=== PATIENT | female | born 1955 | race Caucasian/White ===

== ENCOUNTER 2020-05-02 15:28 | Inpatient (IN) | payer OTHER ==
[~2020-05-02] VITALS: Ht 167.6 cm; Wt 102.3 kg
[2020-05-02] MEDS ORDERED: DEXA6TAB6 PO (16:50)
[2020-05-02] MEDS ORDERED: dexamethasone inj 6 MG in normal saline 100ml IV soln 100 ML IV ONE (17:30)
[2020-05-02 18:20] LABS: BASOPHILS # (AUTO) 0.1 X10'3 (0-0.2); BASOPHILS % (AUTO) 0.6 % (0-1); EOSINOPHILS # (AUTO) 0.2 X10'3 (0-0.9); EOSINOPHILS % (AUTO) 1.2 % (0-6); HEMATOCRIT 41.3 % (35.0-45.0); HEMOGLOBIN 14.4 g/dl (12.0-16.0); LYMPHOCYTES # (AUTO) 2.9 X10'3 (1.1-4.8); LYMPHOCYTES % (AUTO) 22.1 % (21-51); MEAN CORPUSCULAR HEMOGLOBIN 31.2 PG (27.0-31.0); MEAN CORPUSCULAR HGB CONC 34.8 g/dL (33.0-36.5); MEAN CORPUSCULAR VOLUME 89.8 FL (78-98); MEAN PLATELET VOLUME 8.8 FL (7.4-10.4); MONOCYTES # (AUTO) 1.2 X10'3 (0-0.9); MONOCYTES % (AUTO) 9.5 % (2-12); NEUTROPHILS # (AUTO) 8.7 X10'3 (1.8-7.7); NEUTROPHILS % (AUTO) 66.6 % (42-75); PLATELET COUNT 306 X10'3 (140-440); RED CELL DISTRIBUTION WIDTH 13.2 % (11.5-14.5); WHITE BLOOD COUNT 13.1 X10'3 (4.5-11.0)
[2020-05-02] MEDS ORDERED: iohexol 350MG/ML 100ml bottle IV ONE (18:29)
[2020-05-02 18:35] LABS: D-DIMER 0.68 MG/L FEU (0-0.50)
[2020-05-02 18:51] LABS: ALANINE AMINOTRANSFERASE 117 U/L (12-78); ALBUMIN 3.5 G/DL (3.4-5.0); ALBUMIN/GLOBULIN RATIO 0.7 (1.1-1.5); ALKALINE PHOSPHATASE 82 IU/L (46-116); ANION GAP 12 (8-16); ASPARTATE AMINO TRANSFERASE 85 U/L (10-37); BILIRUBIN,TOTAL 0.5 MG/DL (0.1-1.0); BLOOD UREA NITROGEN 16 MG/DL (7-18); BUN/CREATININE RATIO 15.2 (6.6-38.0); CALCIUM 9.8 MG/DL (8.5-10.1); CHLORIDE 102 MMOL/L (99-107); CREATININE 1.05 MG/DL (0.40-0.90); GLUCOSE 143 MG/DL (70-104); SODIUM 138 MMOL/L (135-145); TOTAL CARBON DIOXIDE 24.1 MMOL/L (24-32); TOTAL PROTEIN 8.6 G/DL (6.4-8.2); eGFR 53 ML/MIN
[2020-05-02 18:56] LABS: POTASSIUM 2.4 MMOL/L (3.5-5.1)
[2020-05-02] MEDS ORDERED: potassium Cl 10 mEq/100mL bag IV ONE (19:00)
[2020-05-02] MEDS ORDERED: potassium 10mEq/100ml NS w/LIDOcaine (10mg/bag) IV ONE (19:00)
[2020-05-02] MEDS ORDERED: magnesium 2GM in 50ml NS 50 ML IV ONE (19:00)
[2020-05-02] MEDS ORDERED: potassium Cl 20 mEq SR tablet PO ONE (19:00)
[2020-05-02] MEDS ORDERED: magnesium oxide 400mg tablet PO ONE (19:00)
[2020-05-02] MEDS ORDERED: azithromycin/NS 500mg/250ml 250 ML IV ONE (19:25)
[2020-05-02 19:33] LABS: MAGNESIUM 2.5 MG/DL (1.5-2.4)
[2020-05-02] MEDS ORDERED: acetaminophen 325mg tablet PO PRN (20:10)
[2020-05-02] MEDS ORDERED: ipratropium/albuterol 3ml nebule NEB PRN ×2 (20:10)
[2020-05-02] MEDS ORDERED: potassium CL 10mEq/100ml bag 100 ML IV PRN ×2 (20:10)
[2020-05-02] MEDS ORDERED: magnesium 2GM in 50ml NS 50 ML IV PRN (20:10)
[2020-05-02] MEDS ORDERED: magnesium Cl slow-release 64mg tablet PO PRN (20:10)
[2020-05-02] MEDS ORDERED: ondansetron/PF 4mg/2ml inj IV PRN (20:10)
[2020-05-02] MEDS ORDERED: magnesium 4gm in 100ml NS 100 ML IV PRN (20:10)
[2020-05-02] MEDS ORDERED: CHOL20002 PO (21:43)
[2020-05-02] MEDS ORDERED: TOP100T PO (21:44)
[2020-05-02] MEDS ORDERED: PROP80CA58 PO (21:46)
[2020-05-02] MEDS ORDERED: EFF37.5XRC PO (21:51)
[2020-05-02] MEDS ORDERED: CYCL-394 PO (21:51)
[2020-05-02] MEDS ORDERED: ASPI-1265 PO (22:02)
[2020-05-02] MEDS ORDERED: OMEP40CA13 PO (22:04)
[2020-05-02] MEDS ORDERED: SYN0.088T PO (22:05)
[2020-05-02] MEDS ORDERED: MAGN400T39 PO (22:09)
[2020-05-02] MEDS ORDERED: cyclobenzaprine 10mg tablet PO PRN (23:45)
[2020-05-03] MEDS: CefTRIAXone/D5W-Rocephin 1gm 50 ML IV SCH (07:40)
[2020-05-03] MEDS: topiramate 100mg tablet PO SCH ×2 (07:40→19:38)
[2020-05-03] MEDS: levoTHYROXINE 88mcg tablet PO SCH (07:40)
[2020-05-03] MEDS: pantoprazole 40mg Tablet.DR PO SCH (07:40)
[2020-05-03] MEDS: vitamin D (cholecalciferol) 1,000 unit tablet PO SCH (07:41)
[2020-05-03] MEDS: magnesium oxide 400mg tablet PO SCH (07:44)
[2020-05-03] MEDS: docusate sod 100mg capsule PO SCH ×2 (07:44→19:12)
[2020-05-03] MEDS: K and/or MAG REPLACEMENT MC SCH ×2 (07:45→19:11)
[2020-05-03 08:12] LABS: BASOPHILS % (AUTO) 0.3 % (0-1); EOSINOPHILS % (AUTO) 0.1 % (0-6); HEMATOCRIT 39.3 % (35.0-45.0); HEMOGLOBIN 13.7 g/dl (12.0-16.0); LYMPHOCYTES # (AUTO) 2.6 X10'3 (1.1-4.8); LYMPHOCYTES % (AUTO) 27.1 % (21-51); MEAN CORPUSCULAR HEMOGLOBIN 31.3 PG (27.0-31.0); MEAN CORPUSCULAR HGB CONC 34.8 g/dL (33.0-36.5); MEAN CORPUSCULAR VOLUME 89.8 FL (78-98); MEAN PLATELET VOLUME 8.6 FL (7.4-10.4); MONOCYTES # (AUTO) 0.8 X10'3 (0-0.9); MONOCYTES % (AUTO) 8.5 % (2-12); NEUTROPHILS # (AUTO) 6.2 X10'3 (1.8-7.7); PLATELET COUNT 268 X10'3 (140-440); RED BLOOD COUNT 4.38 X10'6 (4.20-5.60); RED CELL DISTRIBUTION WIDTH 13.2 % (11.5-14.5); WHITE BLOOD COUNT 9.7 X10'3 (4.5-11.0)
[2020-05-03 08:34] LABS: ALBUMIN 2.9 G/DL (3.4-5.0); ANION GAP 10 (8-16); BLOOD UREA NITROGEN 12 MG/DL (7-18); CALCIUM 9.1 MG/DL (8.5-10.1); CHLORIDE 106 MMOL/L (99-107); CREATININE 0.86 MG/DL (0.40-0.90); GLUCOSE 170 MG/DL (70-104); MAGNESIUM 2.3 MG/DL (1.5-2.4); SODIUM 141 MMOL/L (135-145); TOTAL CARBON DIOXIDE 25.2 MMOL/L (24-32); eGFR 67 ML/MIN
[2020-05-03] MEDS: potassium Cl 20 mEq SR tablet PO PRN ×4 (08:39→22:13)
[2020-05-03] MEDS: PROPRANOLOL HCL 80 MG PO SCH (09:35)
--- NOTE | 2020-05-03 11:21 | NUR ---
TOOK REPORT OVER TELEPHONE FROM SKINNY SHARPE
[2020-05-03 12:25] VITALS: BP 159/88
[2020-05-03 15:00] VITALS: BP 151/90
[2020-05-03] MEDS ORDERED: furosemide 20 MG/2 ML vial IV ONE (15:00)
--- NOTE | 2020-05-03 17:43 | NUR ---
PAGER ID: [phone] MESSAGE: DR. BAPTISTE, [id number]/SAY, CARROL GARCIAS AT 1515, PT STATED " ONE LONG, EXTENDED VOID THAT MISSED THE HAT" TAMAR, [id number], TY
[2020-05-03 18:00] VITALS: BP 150/72
--- NOTE | 2020-05-03 18:32 | NUR ---
Problems reprioritized. Patient report given, questions answered & plan of care reviewed with SKINNY OLMOS.
--- NOTE | 2020-05-03 18:43 | NUR ---
Patient in room PCU 3011. I have received report from Sanchez BABB and had the opportunity to ask questions and assume patient care. Pt sitting up in bed finishing dinner. No signs of distress, will continue to monitor.
[2020-05-03] MEDS: lactobacillus rhamnosus 10,000 MMU CELLS/CAPSULE PO SCH (19:36)
[2020-05-03] MEDS: enoxaparin 40mg/0.4ml syringe SUBCUT SCH (19:37)
[2020-05-03] MEDS: azithromycin/NS 500mg/250ml 250 ML IV SCH (19:39)
[2020-05-03] MEDS ORDERED: venlafaxine XR 37.5mg cap (Q24H) PO SCH (21:00)
[2020-05-03 22:00] VITALS: BP 127/87
[2020-05-03] MEDS: venlafaxine XR 75mg capsule (Q24H) PO SCH (22:21)
[2020-05-04 02:00] VITALS: BP 113/57
[2020-05-04 05:25] LABS: BASOPHILS % (AUTO) 0.4 % (0-1); EOSINOPHILS # (AUTO) 0.3 X10'3 (0-0.9); EOSINOPHILS % (AUTO) 2.6 % (0-6); HEMATOCRIT 38.4 % (35.0-45.0); HEMOGLOBIN 12.9 g/dl (12.0-16.0); MEAN CORPUSCULAR HEMOGLOBIN 30.4 PG (27.0-31.0); MEAN CORPUSCULAR HGB CONC 33.7 g/dL (33.0-36.5); MEAN CORPUSCULAR VOLUME 90.3 FL (78-98); MEAN PLATELET VOLUME 8.9 FL (7.4-10.4); MONOCYTES # (AUTO) 0.9 X10'3 (0-0.9); MONOCYTES % (AUTO) 7.9 % (2-12); NEUTROPHILS # (AUTO) 7.3 X10'3 (1.8-7.7); NEUTROPHILS % (AUTO) 63.1 % (42-75); PLATELET COUNT 292 X10'3 (140-440); RED BLOOD COUNT 4.25 X10'6 (4.20-5.60); RED CELL DISTRIBUTION WIDTH 13.6 % (11.5-14.5); WHITE BLOOD COUNT 11.5 X10'3 (4.5-11.0)
[2020-05-04 05:28] LABS: ALBUMIN 2.8 G/DL (3.4-5.0); ANION GAP 10 (8-16); BLOOD UREA NITROGEN 13 MG/DL (7-18); BUN/CREATININE RATIO 12.9 (6.6-38.0); CALCIUM 8.9 MG/DL (8.5-10.1); CHLORIDE 108 MMOL/L (99-107); CREATININE 1.01 MG/DL (0.40-0.90); GLUCOSE 146 MG/DL (70-104); POTASSIUM 3.4 MMOL/L (3.5-5.1); SODIUM 141 MMOL/L (135-145); TOTAL CARBON DIOXIDE 22.8 MMOL/L (24-32); eGFR 55 ML/MIN
[2020-05-04 06:00] VITALS: BP 127/65
--- NOTE | 2020-05-04 06:26 | NUR ---
Patient in room PCU 3011. I have received report from SKINNY OLMOS and had the opportunity to ask questions and assume patient care.
--- NOTE | 2020-05-04 06:26 | NUR ---
Problems reprioritized. Patient report given, questions answered & plan of care reviewed with Sanchez RN.
[2020-05-04] MEDS: pantoprazole 40mg Tablet.DR PO SCH (06:56)
[2020-05-04] MEDS: levoTHYROXINE 88mcg tablet PO SCH (06:56)
[2020-05-04] MEDS: K and/or MAG REPLACEMENT MC SCH ×2 (08:00→19:30)
[2020-05-04] MEDS: docusate sod 100mg capsule PO SCH ×2 (08:00→19:29)
[2020-05-04] MEDS: lactobacillus rhamnosus 10,000 MMU CELLS/CAPSULE PO SCH ×2 (08:28→19:20)
[2020-05-04] MEDS: CefTRIAXone/D5W-Rocephin 1gm 50 ML IV SCH (08:31)
[2020-05-04] MEDS: magnesium oxide 400mg tablet PO SCH (08:37)
[2020-05-04] MEDS: PROPRANOLOL HCL 80 MG PO SCH (08:38)
[2020-05-04] MEDS: topiramate 100mg tablet PO SCH ×2 (08:38→19:20)
[2020-05-04] MEDS: vitamin D (cholecalciferol) 1,000 unit tablet PO SCH (08:39)
[2020-05-04] MEDS: potassium Cl 20 mEq SR tablet PO PRN ×3 (08:41→19:20)
[2020-05-04] MEDS ORDERED: furosemide 20 MG/2 ML vial IV ONE (09:30)
[2020-05-04 11:00] VITALS: BP 121/67
--- NOTE | 2020-05-04 11:20 | NUR ---
REPORT TO "NIRAV"SKINNY VIA TELEPHONE.TO BE TRANSFERRED.
--- NOTE | 2020-05-04 11:23 | NUR ---
received report from SKINNY Bradford. Awaiting patient arrival to room 347b.
--- NOTE | 2020-05-04 11:30 | NUR ---
TRANSFERRED TO ROOM 347A VIA .
--- NOTE | 2020-05-04 11:40 | NUR ---
Received patient to room 347b. Patient is alert and oriented with no complaints at this time. Oriented patient to room and call light placed within patient's reach. Bed low and locked.
--- NOTE | 2020-05-04 11:52 | NUR ---
PAGER ID: [phone] MESSAGE: DR. BAPTISTE, 5101A/SAY, LASIX 20MG IV ADM AT 1000. OF TRANSFER TO [facility], SURGICAL AT 1130, HAD VOIDED 200+400CC FOR TOTAL OF 600CC OUT. TAMAR [id number], TY
[2020-05-04 12:08] VITALS: BP 145/85
--- NOTE | 2020-05-04 16:23 | NUR ---
Malnutrition consult: Pt presented to ER with covid-like symptoms; admitted for shortness of breath. PO intake 100% of heart healthy diet. No edema, normal muscle strength per physical assessment. Well-developed per H&P. No prior scaled wts, current wt 225lbs. Pt lacks a minimum of two criteria for malnutrition. No nutrition concerns at this time, will follow up on 05/07 for initial assessment. Addendum: 05/04/20 at [address] Amended: Links added. Addendum: 05/04/20 at [address] VALARIE agree with sports intern note
--- NOTE | 2020-05-04 18:41 | NUR ---
Patient in room SMOOTH 347. I have received report from Murray BABB and had the opportunity to ask questions and assume patient care.
--- NOTE | 2020-05-04 18:42 | NUR ---
Problems reprioritized. Patient report given, questions answered & plan of care reviewed with SKINNY OLMOS.
[2020-05-04] MEDS: enoxaparin 40mg/0.4ml syringe SUBCUT SCH (19:20)
[2020-05-04] MEDS: azithromycin/NS 500mg/250ml 250 ML IV SCH (19:31)
[2020-05-04 20:00] VITALS: BP 148/81
[2020-05-04] MEDS: venlafaxine XR 75mg capsule (Q24H) PO SCH (22:15)
[2020-05-05] VITALS: BP 138/81
[2020-05-05 05:25] LABS: ALBUMIN 2.7 G/DL (3.4-5.0); ANION GAP 9 (8-16); BLOOD UREA NITROGEN 13 MG/DL (7-18); BUN/CREATININE RATIO 14.9 (6.6-38.0); CALCIUM 8.9 MG/DL (8.5-10.1); CHLORIDE 107 MMOL/L (99-107); CREATININE 0.87 MG/DL (0.40-0.90); GLUCOSE 126 MG/DL (70-104); MAGNESIUM 1.9 MG/DL (1.5-2.4); POTASSIUM 3.8 MMOL/L (3.5-5.1); SODIUM 140 MMOL/L (135-145); TOTAL CARBON DIOXIDE 23.8 MMOL/L (24-32); eGFR 66 ML/MIN
[2020-05-05 05:47] LABS: BASOPHILS # (AUTO) 0.1 X10'3 (0-0.2); BASOPHILS % (AUTO) 0.8 % (0-1); EOSINOPHILS # (AUTO) 0.3 X10'3 (0-0.9); EOSINOPHILS % (AUTO) 2.6 % (0-6); HEMATOCRIT 37.4 % (35.0-45.0); HEMOGLOBIN 12.6 g/dl (12.0-16.0); LYMPHOCYTES # (AUTO) 3.3 X10'3 (1.1-4.8); LYMPHOCYTES % (AUTO) 27.7 % (21-51); MEAN CORPUSCULAR HEMOGLOBIN 30.6 PG (27.0-31.0); MEAN CORPUSCULAR HGB CONC 33.7 g/dL (33.0-36.5); MEAN CORPUSCULAR VOLUME 90.7 FL (78-98); MEAN PLATELET VOLUME 8.7 FL (7.4-10.4); MONOCYTES # (AUTO) 0.9 X10'3 (0-0.9); NEUTROPHILS # (AUTO) 7.2 X10'3 (1.8-7.7); NEUTROPHILS % (AUTO) 60.9 % (42-75); PLATELET COUNT 301 X10'3 (140-440); RED BLOOD COUNT 4.13 X10'6 (4.20-5.60); WHITE BLOOD COUNT 11.8 X10'3 (4.5-11.0)
--- NOTE | 2020-05-05 06:41 | NUR ---
Problems reprioritized. Patient report given, questions answered & plan of care reviewed with Murray BABB.
--- NOTE | 2020-05-05 06:57 | NUR ---
Patient in room SMOOTH 347. I have received report from SKINNY Dangelo and had the opportunity to ask questions and assume patient care.
[2020-05-05 07:00] VITALS: BP 119/75
[2020-05-05] MEDS: pantoprazole 40mg Tablet.DR PO SCH (07:33)
[2020-05-05] MEDS: topiramate 100mg tablet PO SCH (07:33)
[2020-05-05] MEDS: vitamin D (cholecalciferol) 1,000 unit tablet PO SCH (07:33)
[2020-05-05] MEDS: levoTHYROXINE 88mcg tablet PO SCH (07:33)
[2020-05-05] MEDS: magnesium oxide 400mg tablet PO SCH (07:33)
[2020-05-05] MEDS: PROPRANOLOL HCL 80 MG PO SCH (07:33)
[2020-05-05] MEDS: lactobacillus rhamnosus 10,000 MMU CELLS/CAPSULE PO SCH (07:33)
[2020-05-05] MEDS: CefTRIAXone/D5W-Rocephin 1gm 50 ML IV SCH (07:34)
[2020-05-05] MEDS ORDERED: furosemide 20 MG/2 ML vial IV SCH (08:00)
[2020-05-05] MEDS: K and/or MAG REPLACEMENT MC SCH (08:00)
[2020-05-05] MEDS: docusate sod 100mg capsule PO SCH (08:00)
[2020-05-05] MEDS ORDERED: FURO-150 PO (09:54)
[2020-05-05] MEDS ORDERED: LEVO750T46 PO (09:54)
--- NOTE | 2020-05-05 11:12 | NUR ---
Patient is alert and oriented with no complaints at this time. Discussed with patient discharge instructions and new prescription. Prescription paper given to patient. Patient verbalized understanding of teaching and no further questions. Patient is ready for dc and awaiting for her mother to [employer] material [employer] to transport home. Addendum: 05/05/20 at 1157 by Murray Galdamez RN Patient dc'd with all personal belongings including home meds that were stored in pharmacy. Patient escorted out by [facility] representative.
[2020-05-05 11:24] VITALS: BP 130/70
[2020-05-05 15:58] LABS: HBSAG SCREEN Negative (Negative); HEPATITIS C ANTIBODY <0.1 s/co ratio (0.0-0.9)
== END 2020-05-05 11:45 | disposition home or self-care (01) | DRG 291 ==
LOC: ER 15:29 → ED HOLD 20:08 → PCU 3S 05-03 12:18 → SUR 3N 05-04 11:43
PROVIDERS: ADMIT Internal Medicine; ATTEND Internal Medicine
PROC: B32T1ZZ Computerized Tomography (CT Scan) of Left Pulmonary Artery using Low Osmolar Contrast (ICD-10-PCS; principal; 2020-05-02)
PROC: B3201ZZ Computerized Tomography (CT Scan) of Thoracic Aorta using Low Osmolar Contrast (ICD-10-PCS; 2020-05-02)
PROC: B32S1ZZ Computerized Tomography (CT Scan) of Right Pulmonary Artery using Low Osmolar Contrast (ICD-10-PCS; 2020-05-02)
DX: I11.0 Hypertensive heart disease with heart failure (principal); J96.01 Acute respiratory failure with hypoxia; J15.9 Unspecified bacterial pneumonia; E87.6 Hypokalemia; E89.0 Postprocedural hypothyroidism; F32.9 Major depressive disorder, single episode, unspecified; J98.01 Acute bronchospasm; I50.813 Acute on chronic right heart failure; K52.9 Noninfective gastroenteritis and colitis, unspecified; I27.81 Cor pulmonale (chronic); R94.5 Abnormal results of liver function studies; R00.0 Tachycardia, unspecified; Z20.828 Contact with and (suspected) exposure to other viral communicable diseases; Z79.899 Other long term (current) drug therapy; Z79.82 Long term (current) use of aspirin; Z88.5 Allergy status to narcotic agent; Z90.49 Acquired absence of other specified parts of digestive tract; Z98.51 Tubal ligation status
CPT/HCPCS: 36415; 71045; 71275; 80048; 80053; 83605; 83735; 83880; 84132; 84145; 84443; 84484; 85025; 85379; 86705; 86706; 86803; 87040; 87070; 87081; 87340; 87502; 87503; 87635; 93005; 93306; 93308; 94760; 96365; 99291; C9803; G0378; J0456; J0696; J1100; J1650; J1940; J3475; J3480; Q9967